=== PATIENT | male | born 1960 | race African-American/Black ===

== ENCOUNTER 2020-03-12 10:01 | Emergency (ER) | payer SELFPAY ==
[~2020-03-12] VITALS: Ht 188 cm; Wt 120.0 kg
--- NOTE | 2020-03-12 11:32 | PHYS DOC ---
Past Medical History Past Medical History: Hypertension Additional Past Medical Histor: etoh daily Past Surgical History: No Surgical History Smoking Status: Never Smoker Alcohol Use: Heavy Drug Use: None General Adult EDM: Chief Complaint: HYPERTENSION HPI: HPI: Patient is a 59 year old male who presents with patient states he has been out of a job since October. He states he has no insurance and therefore has not gotten his hypertensive medication refilled. He does have a history of hypertension and alcohol daily. His blood pressures at home of been running in the 200s. Here in the ED it was 197/123. He states he has intermittent dizziness but today he has no symptoms. Patient is also a smoker. Patient states he cannot remember what the medication is called. Patient denies chest pain, shortness of breath, headache, vision changes, numbness or tingling, abdominal pain, nausea, vomiting, diarrhea, fever, cough, back pain, syncope, dizziness at this time. Review of Systems: Review of Systems: Constitutional: Denies fever or chills. [] Eyes: Denies change in visual acuity. [] HENT: Denies nasal congestion or sore throat. [] Respiratory: Denies cough or shortness of breath. [] Cardiovascular: Denies chest pain or edema. + Hypertensive [] GI: Denies abdominal pain, nausea, vomiting, bloody stools or diarrhea. [] : Denies dysuria. [] Musculoskeletal: Denies back pain or joint pain. [] Integument: Denies rash. [] Neurologic: Denies headache, focal weakness or sensory changes. + Intermittent dizziness [] Endocrine: Denies polyuria or polydipsia. [] Lymphatic: Denies swollen glands. [] Psychiatric: Denies depression or anxiety. [] Heart Score: Risk Factors: Risk Factors: DM, Current or recent (<one month) smoker, HTN, HLP, family history of CAD, obesity. Risk Scores: Score 0 - 3: 2.5% MACE over next 6 weeks - Discharge Home Score 4 - 6: 20.3% MACE over next 6 weeks - Admit for Clinical Observation Score 7 - 10: 72.7% MACE over next 6 weeks - Early Invasive Strategies Allergies: Allergies: Allergies Coded Allergies Type Severity Reaction Last Updated Verified No Known Drug Allergies 08/18/13 No Physical Exam: PE: Constitutional: Well developed, well nourished, no acute distress, non-toxic appearance. [] HENT: Normocephalic, atraumatic, bilateral external ears normal, oropharynx moist, no oral exudates, nose normal. [] Eyes: PERRLA, EOMI, conjunctiva normal, no discharge. [] Neck: Normal range of motion, no tenderness, supple, no stridor. [] Cardiovascular:Heart rate regular rhythm, no murmur [] Lungs & Thorax: Bilateral breath sounds clear to auscultation [] Abdomen: Bowel sounds normal, soft, no tenderness, no masses, no pulsatile masses. [] Skin: Warm, dry, no erythema, no rash. [] Back: No tenderness, no CVA tenderness. [] Extremities: No tenderness, no cyanosis, no clubbing, ROM intact, no edema. [] Neurologic: Alert and oriented X 3, normal motor function, normal sensory function, no focal deficits noted. [] Psychologic: Affect normal, judgement normal, mood normal. Normal physical exam [] Current Patient Data: Vital Signs: Vital Signs Date Time Temp Pulse Resp B/P (MAP) Pulse Ox O2 Delivery O2 Flow Rate FiO2 03/12/20 10:22 98.2 88 18 197/123 (147) 99 Room Air 98.2 EKG: EK and read by Dr Meza as Sinus Rhythm and no STEMI[] Radiology/Procedures: Radiology/Procedures: [] Course & Med Decision Making: Course & Med Decision Making Pertinent Labs and Imaging studies reviewed. (See chart for details) See HPI. Alert and oriented x4. Ambulatory with a steady gait. No peripheral edema. Speaks in full clear sentences. Skin pink warm and dry. Lungs are clear to auscultation all lobes. [facility]. They stated they have not refilled his prescription since 2018. Pharmacy states that he was on amlodipine 10 mg daily. I have spoken to Dr. Meza concerning this. She states that we can put him on amlodipine 10 mg daily as he was and then he is to follow-up with his primary care provider. [] Dragon Disclaimer: Dragon Disclaimer: This electronic medical record was generated, in whole or in part, using a voice recognition dictation system. Departure Departure Impression: Primary Impression: Hypertension Qualified Codes: I10 - Essential (primary) hypertension Disposition: 01 DC HOME SELF CARE/HOMELESS Condition: STABLE Referrals: NO PCP (PCP) Patient Instructions: Hypertension Additional Instructions: Follow-up with your primary care provider soon as possible. Take your medications as prescribed. If you begin having chest pain, headache or dizziness you need to return to the emergency room. Scripts Amlodipine Besylate (AMLODIPINE BESYLATE) 10 Mg Tablet 10 MG PO DAILY, #30 TAB Prov: YAEL HEART APRN 03/12/20 YAEL HEART APRN Mar 12, 2020 11:32
[2020-03-12 12:03] LABS: BASO # 0.1 x10^3/uL (0.0-0.2); BASO % 1 % (0-3); EOS # 0.2 x10^3/uL (0.0-0.7); EOS % 5 % (0-3); HEMATOCRIT 43.5 % (39.0-53.0); HEMOGLOBIN 14.5 g/dL (13.0-17.5); LYMPH # 1.3 x10^3/uL (1.0-4.8); LYMPH % 32 % (24-48); MEAN CORPUSCULAR HEMOGLOBIN 26 pg (25-35); MEAN CORPUSCULAR HGB CONC 33 g/dL (31-37); MEAN CORPUSCULAR VOLUME 78 fL (79-100); MONO # 0.6 x10^3/uL (0.0-1.1); MONO % 15 % (0-9); NEUT # 1.9 x10^3/uL (1.8-7.7); NEUT % 47 % (31-73); PLATELET COUNT 173 x10^3/uL (140-400); RED BLOOD COUNT 5.59 x10^6/uL (4.30-5.70); RED CELL DISTRIBUTION WIDTH 13.8 % (11.5-14.5); WHITE BLOOD COUNT 4.1 x10^3/uL (4.0-11.0)
[2020-03-12 12:16] LABS: CALCIUM 9.2 mg/dL (8.5-10.1); CREATININE 1.1 mg/dL (0.7-1.3); GFR 82.9
[2020-03-12] MEDS ORDERED: AMLO-187 PO (12:17)
[2020-03-12 12:22] LABS: ALBUMIN 3.7 g/dL (3.4-5.0); ALBUMIN/GLOBULIN RATIO 1.1 (1.0-1.7); TOTAL BILIRUBIN 0.5 mg/dL (0.2-1.0); TOTAL PROTEIN 7.2 g/dL (6.4-8.2)
[2020-03-12] MEDS: amLODIPine BESYLATE 5 MG TABLET PO ONE (12:24)
[2020-03-12 13:30] VITALS: BP 186/119
[2020-03-12 13:46] LABS: BARBITURATES NEG (NEG); BENZODIAZEPINES NEG (NEG); CANNABINOIDS NEG (NEG); COCAINE NEG (NEG); METHADONE NEG (NEG); OPIATES POS (NEG); PHENCYCLIDINE NEG (NEG)
[2020-03-12 13:49] LABS: AMPHETAMINE/METHAMPHETAMINE NEG (NEG)
== END 2020-03-12 13:35 | disposition home or self-care (01) ==
LOC: ER 10:01
DX: I10 Essential (primary) hypertension (principal); R42 Dizziness and giddiness; F10.10 Alcohol abuse, uncomplicated
CPT/HCPCS: 36415; 80053; 80307; 83880; 84484; 85025; 93005; 99284; G0480